=== PATIENT | male | born 1995 | race African-American/Black ===

== ENCOUNTER 2019-07-09 19:29 | Emergency (ER) | payer SELFPAY ==
[~2019-07-09] VITALS: Ht 200.7 cm; Wt 77.2 kg
[2019-07-09 22:00] VITALS: BP 126/71
[2019-07-09] MEDS ORDERED: IBUPROFEN 800 MG TAB PO ONE (22:30)
[2019-07-09] MEDS ORDERED: ACETAMINOPHEN/CODEINE#3 (300/30mg) TAB PO ONE (22:30)
== END 2019-07-09 23:45 | disposition home or self-care (01) ==
LOC: ER 19:35
DX: S93.402A Sprain of unspecified ligament of left ankle, initial encounter (principal); S93.401A Sprain of unspecified ligament of right ankle, initial encounter; M21.42 Flat foot [pes planus] (acquired), left foot; M21.41 Flat foot [pes planus] (acquired), right foot; W17.89XA Other fall from one level to another, initial encounter; Y93.89 Activity, other specified; Y92.481 Parking lot as the place of occurrence of the external cause; Y99.8 Other external cause status
CPT/HCPCS: 73610

== ENCOUNTER 2019-12-19 21:19 | Emergency (ER) | payer SELFPAY | END 2019-12-20 00:31 | disposition left against medical advice (07) | LOC: ER 21:19 | DX: R10.9 Unspecified abdominal pain (principal); Z53.21 Procedure and treatment not carried out due to patient leaving prior to being seen by health care provider ==

== ENCOUNTER 2020-07-15 22:03 | Emergency (ER) | payer SELFPAY ==
[~2020-07-15] VITALS: Ht 188 cm; Wt 72.6 kg
[2020-07-15 23:53] VITALS: BP 142/88
== END 2020-07-16 01:51 | disposition short-term general hospital (02) ==
LOC: ER 22:03 → EDUNIT# 22:03 → EDBD 22:03 → ER 07-16 01:51
DX: I95.9 Hypotension, unspecified (principal); F15.10 Other stimulant abuse, uncomplicated
CPT/HCPCS: 70450